=== PATIENT | male | born 1980 | race Caucasian/White ===

== ENCOUNTER 2016-05-23 11:25 | Emergency (ER) | payer SELFPAY ==
[2016-05-23] MEDS ORDERED: NORMAL SALINE 10 ML SYRINGE FLUSH IVP PRN (11:40)
[2016-05-23] MEDS ORDERED: DIAZEPAM 10 MG/2 ML (5 MG/1 ML) CARPUJECT IVP ONE (11:40)
[2016-05-23] MEDS ORDERED: MEPERIDINE HCL/PF 100 MG/1 ML INJECTION IVP ONE (11:40)
[2016-05-23 11:52] VITALS: RESP 14
[2016-05-23] MEDS ORDERED: Sodium Chloride 0.9% 1,000 ML PRIMARY IV ONE (11:58)
[2016-05-23] MEDS ORDERED: MIDAZOLAM 5 MG/1 ML ONE (12:16)
[2016-05-23] MEDS ORDERED: MIDAZOLAM 5 MG/1 ML IVP ONE (12:42)
--- NOTE | 2016-05-23 12:44 | PDOC ---
Shoulder Injury/Pain HPI - General Chief Complaint: Upper Extremity Problem/Injury Stated Complaint: LEFT SHOULDER INJURY Date Seen by Provider: 05/23/16 Time Seen by Provider: 12:44 - History of Present Illness Have you received a tetanus shot in the past 10 years?: Unknown - Patient Home Medications Home Medications: Home Medications NK [No Home Medications Reported] 05/23/16 - Patient Allergies Allergies/Adverse Reactions: Allergies Allergy/AdvReac Type Severity Reaction Status Date / Time No Known Allergies Allergy Verified 05/23/16 12:00 Past Medical History - heen HEENT History: Denies History Cardiovascular History: Denies History Respiratory History: Denies History Gastrointestinal History: Denies History Genitourinary History: Denies History Endocrine History: Denies History Musculoskeletal History: Denies History Neurological History: Denies History Blood Disorders: Denies History Psychiatric History: Denies History History of Sexually Transmitted Diseases: No Cancer History: Denies History In Past Year Been Physically Harmed or Verbally Threatened: No History of MDRO: No Tobacco Use: Unknown If Ever Smoked Alcohol Use: None Substance Use Type: None Previous Surgical History: Yes Type / Date of Surgery: LEFT SHOULDER RCT X3, RIGHT ANKLE Anesthesia Reactions: No Malignant Hyperthermia: No Significant Family History: No pertinent family hx Procedure - Procedure Sedation Product Analyst Applied: Yes Rhythm: Sinus Rhythm Oxygen Delivery Method: Mask-Simple Oxygen Flow Rate: 6 Continuous Pulse Ox: Yes Patent IV Line (s): Yes Patient Tolerated Procedure: Good - Reduction Location of Reduction:: ED ed Conscious Sedation: Yes Method of Reduction: POSITIVE: Other (Multiple reduction attempts were made to reduce his left shoulder. Techniques included Friedman and Walker and Carver and then with substantial sedation traction countertraction with pressure into the axilla and none of these were successful in permit reduction of his shoulder dislocation.) Shoulder Pain/Injury Progress - Results Reviewed by me Radiology Findings: Postreduction films show that his humerus is still substantially inferior in his glenoid and then - Patient's Progress MDM / ED Course: re-examination of the shoulder after these films is taken I believe he likely slipped forward back into anterior dislocation. Ultimately this gentleman shoulder is resistant to being reduced. He states that with 2 prior reductions he had to have surgery to have this shoulder repaired before it would reduce. I have discussed this case with orthopedic surgeon Dr. Alford [place] [facility] [place] accept the patient for evaluation. The patient is to go through the emergency department therefore I discussed the case with Dr. Cassandra Gallegos take this patient in the ER. He isn't be transferred via police car after his shoulder and arm are placed in a sling. He was given a total of 100 mg of Demerol 10 mg of Valium and then 4 mg of Versed for sedation. Patient Care Time - Estimated PCT Patient Care Time (In Minutes): 65 Vital Signs - Recent Vital Signs Vital Signs: Vital Signs (Last 8 hours) Temp Pulse Resp BP Pulse Ox 05/23/16 11:25 98.2 F 111 H 14 121/101 100 Discharge Clinical Impression: Dislocation of shoulder joint Discharge Disposition: Transferred to Tertiary Care Facility Condition: Good Patient Instructions Given at Discharge: Shoulder Dislocation (ED) Additional Instructions: Patient is being transferred to [facility] [place] the care of Dr. Alford and the emergency department providers. Follow Up With: NONE,NONE [Primary Care Provider] - Date Decision to Transfer to Another Facility: 05/23/16 Time Decision to Transfer to Another Facility: 14:55
--- NOTE | 2016-05-23 13:23 | DI ---
XR SHOULDER 1VW,05/23/2016 12:26 PM: Clinical History: Post reduction. Previous Exam: Same date at 3 hours prior. Findings: A single AP view of the left shoulder is obtained, and demonstrates superior location of the proximal humerus when compared with the prior exam. Impression: With this single view, it is impossible to verify anatomic alignment.
--- NOTE | 2016-05-23 14:48 | DI ---
XR SHOULDER MIN 2VW,05/23/2016 1:22 PM: Clinical History: Status post reduction. Previous Exam: Same date one hour prior. Findings: 3 views of the left shoulder are obtained, and demonstrate an excessively low position of the humeral head on the glenoid, but there is no anterior dislocation. There are degenerative changes involving the left glenohumeral joint. The acromioclavicular joint is unremarkable. The adjacent left lung and chest wall is unremarkable. Impression: Degenerative changes of the left glenohumeral joint. Near anatomic alignment with a slightly inferiorly displaced humerus on the glenoid.
[2016-05-23 15:30] VITALS: TEMP 98
== END 2016-05-23 15:15 | disposition short-term general hospital (02) ==
LOC: ER 11:25
DX: M24.312 Pathological dislocation of left shoulder, not elsewhere classified (principal); X50.1XXA Overexertion from prolonged static or awkward postures, initial encounter; Y93.B9 Activity, other involving muscle strengthening exercises
CPT/HCPCS: 23650; 73020; 73030; 96374; 96375; 99283; J2175; J2250; J3360; J7030

== ENCOUNTER → 2016-05-23 | Outpatient (CLI) | payer SELFPAY ==
--- NOTE | 2016-05-23 11:01 | DI ---
XR SHOULDER MIN 2VW,05/23/2016 9:18 AM: Clinical History: Recurrent dislocations. Previous Exam: April 18, 2012 Findings: 2 views of the left shoulder are obtained, and demonstrate an anterior inferior dislocation of the le ft glenohumeral joint with new osteophyte formation of the humerus. There is some sclerosis of the an terior margin of the glenoid as well. The adjacent left lung and chest wall are unremarkable. The clavicle is unremarkable. Impression: 1. Anterior dislocation of the left glenohumeral joint. 2. New degenerative osteoarthritis of the glenohumeral joint.
== END ==
LOC: MOB RAD 09:19
PROVIDERS: ATTEND Physician Assistant
DX: M24.412 Recurrent dislocation, left shoulder (principal); M19.012 Primary osteoarthritis, left shoulder
CPT/HCPCS: 73030

== ENCOUNTER → 2016-06-06 | Outpatient (CLI) | payer OTHER ==
--- NOTE | 2016-06-07 15:03 | DI ---
MRI LEFT SHOULDER SCAN, 06/06/2016 1:02 PM: Clinical History: Recurrent left shoulder dislocation. Previous Exam: None at this facility. Comparison is made with plain films of the shoulder from 012 and 05/23/2016. Technique: Axial, coronal, and sagittal fat saturated PD; axial gradient FE; coronal fat saturatedT2 weighted; sagittal T2 weighted. There is no soft tissue abnormality. A moderately large joint effusion is present. The AC joint is no rmal. There is a type II acromion. The patient has had prior surgery involving the anterior half of t he glenoid labrum with multiple anchors placed in the anterior half of the glenoid from the 12:00 estrellita ost to the 6:00 position. Anchors have also been placed in the posterior aspect of the humeral head. This patient may have had previous surgery to the supraspinatus and infraspinatus tendons and there i s an interstitial tear in the infraspinatus tendon. There is no Hill-Sachs deformity although the anc hor screws are placed at the location typical of a Hill-Sachs lesion. There is fragmentation of the a nteroinferior margin of the glenoid fossa indicative of a previous bony Bankart lesion. There is tend inosis of the subscapular tendon. The teres minor tendon is normal. The tendon of the long head of th e biceps muscle cannot be identified in this patient may have had a biceps tenodesis. There is bony s purring along the inferior and medial margin of the humeral head. The articular surface of the glenoi d is intact. There is marked thinning of the cartilaginous surface of the superior and medial surface of the humeral head, and complete erosion cannot be excluded. There is synovitis in the axillary latrell ch posteriorly. Readin. Status post extensive repair attempt for a bony Bankart lesion. There is marked erosion if not co mplete erosion of the superior and medial surface of the humeral head. Multiple anchors have been karlos marino in the anterior aspect of the glenoid fossa from the 12:00 to the 6:00 position. There are artifa cts present making assessment of the integrity of the anterior labrum difficult. There is synovitis i n the axillary pouch. Previous surgery has been performed through the myotendinous junction of the in fraspinatus muscle with placement of posterior anchors in the humeral head. No Hill-Sachs deformity i s seen and there is no evidence of grafts placed in the humeral head to repair a Hill-Sachs deformity . An interstitial tear is present in what probably represents a previous repair of the infraspinatus tendon. The patient may have also had a supraspinatus tendon repair. There is subscapularis tendinosi s. This patient may have also had tenodesis of the tendon of the long head of the biceps muscle. 2. The AC joint is normal. There is a type II acromion.
--- NOTE | 2016-06-07 15:03 | DI ---
CT SCAN OF THE LEFT SHOULDER, 06/06/2016 1:02 PM : Clinical History: Recurrent dislocations of the left shoulder. Scans are obtained from the base of the neck to the proximal third of the left humerus without IV con trast. Sagittal and coronal reformatted images are also generated. This patient had an MRI scan of the shoulder earlier the same day that demonstrated the shoulder in t he glenoid fossa. The outside dealer sales representative view in the subsequent images performed on the shoulder at this time show s inferior dislocation of the humeral head. Multiple anchoring holes are present in the anterior aspect of the glenoid fossa from the 12:00 posit ion extending inferiorly to the 6:00 position. There is fragmentation of the anterior labrum at the l evel of the equator indicating this patient has had a previous bony Bankart injury with subsequent re pair attempts. There are multiple anchors placed in the posterior aspect of the humeral head as well as in the anterosuperior and posterior superior portions of the humeral head probably related to repa ir of the supraspinatus and infraspinatus tendons. Extensive bony spurring is present along the anter oinferior and posteroinferior margins of the humeral head. There is no Hill-Sachs deformity. Remodeli ng of the glenoid fossa has occurred. The AC joint is normal and there is a type II acromion. No musc le atrophy is seen to involve the subscapularis, the supraspinatus and infraspinatus muscles. The ter es minor muscle does appear small but does not show fatty infiltration. The deltoid muscle also appea rs small relative to the surrounding muscles, and the possibility of axillary nerve damage is raised. READIN. The anteroinferior margin of the glenoid fossa has a fragmented appearance consistent with a prev ious bony Bankart lesion. The bony Bankart fracture has not healed. Multiple anchor holes are present from the 12:00 to the 6:00 position in the anterior half of the glenoid fossa. Anchors have also bee n placed in the humeral head probably for repair of the supraspinatus and infraspinatus tendons. Ther e are additional anchors located in the posterior aspect of the humeral head with evidence of previou s surgery of the infraspinatus muscle at the level of the myotendinous junction. There is no Hill-Sac hs deformity and there is no obvious evidence of prior bone grafting of the humeral head. 2. There has been remodeling of the glenoid fossa with bony spurring of the humerus along the inferi or margin of the humeral head medially. Between the time of the MRI scan and this CT scan, the natali l head has become inferiorly subluxed.
== END ==
LOC: MRI 12:55
PROVIDERS: ATTEND Orthopaedic Surgery Sports Medicine
DX: M24.412 Recurrent dislocation, left shoulder (principal); M94.8X1 Other specified disorders of cartilage, shoulder; M65.812 Other synovitis and tenosynovitis, left shoulder
CPT/HCPCS: 73200; 73221

== ENCOUNTER 2016-06-08 15:44 | Emergency (ER) | payer OTHER ==
[2016-06-08] MEDS ORDERED: NORMAL SALINE 10 ML SYRINGE FLUSH IVP PRN (15:56)
[2016-06-08 16:01] VITALS: TEMP 99
[2016-06-08] MEDS ORDERED: MIDAZOLAM 5 MG/1 ML IVP ONE ×3 (16:26→17:01)
[2016-06-08] MEDS ORDERED: MORPHINE SULFATE 4 MG/1 ML IVP ONE (16:26)
[2016-06-08] MEDS ORDERED: MORPHINE SULFATE 2 MG/1 ML IVP ONE (17:00)
[2016-06-08] MEDS ORDERED: Sodium Chloride 0.9% 1,000 ML PRIMARY IV ONE (17:02)
[2016-06-08] MEDS ORDERED: HYDROcodone-APAP 10 MG-325 MG TABLET PO SCH (18:00)
[2016-06-08] MEDS ORDERED: Sodium Chloride 0.9% 1,000 ML ONE (18:06)
[2016-06-08 18:12] VITALS: RESP 16
--- NOTE | 2016-06-08 20:55 | PDOC ---
Shoulder Injury/Pain HPI - General Chief Complaint: Upper Extremity Problem/Injury Stated Complaint: dislocated L shoulder Date Seen by Provider: 06/08/16 Time Seen by Provider: 15:45 Source: POSITIVE: Patient, Police, Old records Exam Limitations: POSITIVE: No limitations Nurse's Notes Reviewed & Considered: Yes - History of Present Illness Initial Comments: The patient is a 35-year-old male. He states that around 8 AM this morning he slipped and fell at the local [facility]; he is an inmate. He states he has had pain to his left shoulder since. Patient states that he has a history of recurring dislocation of his left shoulder for several years. He states he had surgery for chronically dislocating left shoulder 3 years ago in [place]. He was also seen by Dr. Dunn 04/18/2012 with a dislocated left shoulder. He had surgery for a failed Bankart repair of his left shoulder in February 2012. He was seen in the emergency room May 23 with a dislocation of his left shoulder and was relocated in the emergency room at that time. He has since followed up with Dr. James, orthopedic surgeon with shoulder training. He's had an MRI on [address] scan showed subluxation of the left glenohumeral joint. 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) Severity: Moderate Quality: REPORTS: "Pain" Location at Time of Onset: REPORTS: Other ([facility]) Context: REPORTS: Fall, Dislocated w/ Arm Raising Associated Symptoms: DENIES: Weakness, Bruising, Unable to Move Shoulder, Not Using Arm, Tingling, Numbness, Other Any Prior Injuries Related to Current Complaint?: Yes (history of recurring left shoulder dislocation as above) - Patient Home Medications Home Medications: Home Medications HYDROcodone/APAP 10/325 Tab [[place] 10/325 Tab] 1 tab PO Q6H PRN #20 tab Ibuprofen 1 tab PO Q8H PRN tab 06/08/16 Penicillin V Potassium 500 mg PO QID ml 06/08/16 - Patient Allergies Allergies/Adverse Reactions: Allergies Allergy/AdvReac Type Severity Reaction Status Date / Time No Known Allergies Allergy Verified 06/08/16 15:48 Past Medical History - heen HEENT History: Denies History Cardiovascular History: Denies History Respiratory History: Denies History Gastrointestinal History: Denies History Genitourinary History: Denies History Endocrine History: Denies History Musculoskeletal History: Denies History Neurological History: Denies History Blood Disorders: Denies History Psychiatric History: Substance Abuse History of Sexually Transmitted Diseases: No Cancer History: Denies History In Past Year Been Physically Harmed or Verbally Threatened: No History of MDRO: No Tobacco Use: Current Every Day Smoker Alcohol Use: None Substance Use Type: Methamphetamines Previous Surgical History: Yes Type / Date of Surgery: LEFT SHOULDER RCT X3, ORIF RIGHT ANKLE Anesthesia Reactions: No Malignant Hyperthermia: No Significant Family History: No pertinent family hx Past Medical History Reviewed: Reviewed - No Changes ROS - Limitations ROS Limitations: No Limitations Constitution: REPORTS: Denies Symptoms Cardiovascular: REPORTS: Denies Cardiac Symptoms Respiratory: REPORTS: Denies Resp Symptoms Neurological: REPORTS: Denies Neuro Symptoms Gastrointestinal: REPORTS: Denies GI Symptoms Endocrine: REPORTS: Denies Symptoms Musculoskeletal: REPORTS: Joint Pain (Left shoulder), Recent Injury (Left shoulder as above) Genitourinary: REPORTS: Denies Symptoms Eyes: REPORTS: Denies Symptoms ENT: REPORTS: Denies Symptoms Skin: REPORTS: Denies Skin Symptoms Lympathic: REPORTS: Denies Lympathic Symptoms Immunologic: POSITIVE: Denies Symptoms Psychiatric: POSITIVE: Denies Psych Symptoms Shoulder Injury/Pain Exam - General Appearance General Appearance: POSITIVE: Alert, Cooperative, No Acute Distress. NEGATIVE: No Evidence of Trauma (Loss of deltoid prominence, left shoulder) - Upper Extremity Shoulder: POSITIVE: Soft-Tissue Tenderness, Anterior Fullness, Limited ROM, Held in Adduction, See Diagram Upper Extremity: POSITIVE: Uninjured Below Shoulder Neuro/Vascular: POSITIVE: Sensation Normal, Motor Normal, No Vascular Compromise Skin: POSITIVE: Warm, Dry - Neck / Back Neck/Back: POSITIVE: Normal Inspection, Non-Tender, Painless ROM - Respiratory / CVS Respiratory / CVS: POSITIVE: Chest Non Tender, No Ecchymosis, Breath Sounds Normal, No Respiratory Distress, Heart Sounds Normal, Regular Rate/Rhythm Peripheral Pulses: Radial (R): 2+, Radial (L): 2+ Procedure - Reduction Time of Reduction: 16:20 Location of Reduction:: Left anterior glenohumeral shoulder dislocation Pre-Proc Neuro Vasc Exam: Normal Method of Reduction: POSITIVE: Manipulation Reduction Attempts: 3 Post Joint Reduction Film: Joint Reduced Post Reduction Neuro Vasc Exam: POSITIVE: Normal Sling Applied / Immobilizer Applied: Yes (gunslinger device) Procedure Note:: Patient given morphine sulfate and Versed, see nurse's notes, left anterior glenohumeral shoulder dislocation attempt 2. Dislocation appeared to reduce, but then spontaneously dislocate again. Case discussed with Dr. Bazzi, orthopedic surgeon, who had a similar experience. Once reduced, Dr. Bazzi arranged with physical therapy to have shoulder mobilizing a gunslinger device. Patient is being followed for this recurring shoulder dislocation by Dr. James , orthopedic surgeon with special shoulder training. Patient to follow-up with Dr. James next week. Images - Upper Extremities Upper Extremities: 1 - Anterior glenohumeral shoulder dislocation 2 - Well-healed surgical scar from previous surgical procedure for recurring shoulder dislocation. Shoulder Pain/Injury Progress - Results Reviewed by me Xrays/CTs/US Reviewed by me: Yes Discussed with Radiologist: Yes Radiology Findings: Prereduction film shows anterior glenohumeral shoulder dislocation. Postreduction film shows good relocation. - Patient's Progress Pain Medication Addressed: POSITIVE: Yes (Hydrocodone/APAP, one every 6 hours as necessary for pain) Re-Examine Time:: 17:25 Re-Examine Comment: Shoulder dislocation reduced; gunslinger immobilization device placed Status: POSITIVE: Improved, Re-Examined - Consult Counseled: POSITIVE: Patient, RE: Radiology Results, RE: DX, RE: Need for F/U Patient Care Time - Estimated PCT Patient Care Time (In Minutes): 60 Vital Signs - Recent Vital Signs Vital Signs: Vital Signs (Last 8 hours) Temp Pulse Resp BP Pulse Ox 06/08/16 17:11 85 16 132/74 95 06/08/16 16:55 80 16 125/80 06/08/16 16:33 79 16 112/80 97 06/08/16 15:45 99.0 F 95 18 120/76 94 - VS Reviewed Vital Signs Reviewed: Yes Discharge Clinical Impression: Dislocation of shoulder joint Discharge Disposition: Discharged to Custody of Law Enforcement Condition: Stable Prescriptions / Orders: HYDROcodone/APAP 10/325 Tab [[place] 10/325 Tab] 1 tab PO Q6H PRN #20 tab PRN Reason: Pain Patient Instructions Given at Discharge: Shoulder Dislocation (ED) Additional Instructions: Wear the shoulder immobilizing device given to you by physical therapy. Follow- up with Dr. Hilario James, who is a orthopedic surgeon with special training in shoulder problems. You have recurring dislocation of your shoulder with prominent instability of this joint. Hydrocodone/APAP one every 6 hours as necessary for pain. Follow Up With: REJI BUNCH [Primary Care Provider] - (Instructions as above. Follow-up with Dr. James, orthopedist as above. Return as necessary.) Date Decision to Transfer to Another Facility: 06/08/16 Time Decision to Transfer to Another Facility: 17:25
--- NOTE | 2016-06-09 09:29 | DI ---
LEFT SHOULDER, 06/08/2016 2:56 PM: Clinical History: Dislocation. Previous Exam: 05/23/2016. 2 views are submitted. The transthoracic view is obtained with a breathing technique that unfortunate ly degrades the image quality. The AP projection shows subluxation of the humeral head inferiorly wit h impaction of the humeral head on the inferior margin of the glenoid fossa. The visualized portions of the left lung and apex are normal. Reading: Inferior subluxation of the humeral head with impaction of the head on the inferior margin of the gle noid fossa.
--- NOTE | 2016-06-09 09:29 | DI ---
LEFT SHOULDER, 06/08/2016 3:58 PM: Clinical History: Dislocation of the left shoulder. Status post reduction. Previous Exam: Earlier today at 1607 hours. 2 AP projections are submitted. The first film shows reduction of the impacted humeral head but it is still subluxed inferiorly. The second AP projection is obtained one minute later after the humeral h ead is elevated by an legal assistant. In this view, the humeral head is in the normal location. This would indicate there is a combined labral instability and presumed loss of muscle strength to maintain the humeral head in position, suggesting injury to the axillary nerve. Readin. The inferior dislocation with impaction of the humeral head on the inferior margin of the glenoid fossa has been reduced. 2. However, the humeral head undergoes inferior subluxation after reduction and this is indicative o f lack of integrity of the inferior labrum as well as presumed muscle weakness
--- NOTE | 2016-06-11 11:05 | OPS SHOULD ---
Referral Reason: Laly Ultrasling O: The patient was issued an ultrasling and instructed in its proper use and care. P: No further therapy is indicated at this time. The patient will begin outpatient physical therapy. ISABEL
== END 2016-06-08 17:55 ==
LOC: ER 15:44
DX: S43.035A Inferior dislocation of left humerus, initial encounter (principal); W01.0XXA Fall on same level from slipping, tripping and stumbling without subsequent striking against object, initial encounter
CPT/HCPCS: 23650; 73020; 73030; 96374; 96375; 99282; J2250; J2270; J7030

== ENCOUNTER 2016-07-13 16:12 | Emergency (ER) | payer OTHER ==
[2016-07-13] MEDS ORDERED: Sodium Chloride 0.9% 1,000 ML PRIMARY IV ONE (16:18)
--- NOTE | 2016-07-13 16:22 | PDOC ---
Shoulder Injury/Pain HPI - General Chief Complaint: Upper Extremity Problem/Injury Stated Complaint: shoulder Date Seen by Provider: 07/13/16 Time Seen by Provider: 16:19 Source: POSITIVE: Patient, Police Exam Limitations: POSITIVE: No limitations Nurse's Notes Reviewed & Considered: Yes - History of Present Illness Initial Comments: Patient comes in today to complaint of left shoulder dislocation. Patient with a history of frequent shoulder dislocations comes in from group home today with deformity and pain decreased range of motion in his left shoulder. Patient was taking a shower today when he twitched and his shoulder popped out he comes in now for further evaluation. He denies any fever chills or sweats, nausea vomiting or diarrhea, no chest pain or shortness of breath. No rashes, no hematuria dysuria. Have you received a tetanus shot in the past 10 years?: Unknown Location: Left Shoulder Timing: REPORTS: Abrupt Duration: 1/2 hour Severity: Moderate Quality: REPORTS: "Pain" Location at Time of Onset: REPORTS: Other ([facility]) Context: REPORTS: Other (History of frequent dislocations, dislocated in the shower today.) Associated Symptoms: REPORTS: Unable to Move Shoulder, Not Using Arm Any Prior Injuries Related to Current Complaint?: Yes (multiple shoulder dislocations and shoulder surgery in the past.) - Patient Home Medications Home Medications: Home Medications HYDROcodone/APAP 10/325 Tab [[place] 10/325 Tab] 1 tab PO Q6H PRN #20 tab Ibuprofen 1 tab PO Q8H PRN tab 06/08/16 Acetaminophen [Tylenol] 325 mg PO PRN tab 06/22/16 Hydrocodone/Acetaminophen [Hydrocodon-Acetaminophn 10-325] 1 tab PO Q6H tab Ibuprofen 1 tab PO Q8H tab 06/22/16 Naproxen Sodium [Aleve] 1 tab PO Q12H tab 06/22/16 Buspirone HCl 1 tab PO BID #60 tab 07/06/16 - Patient Allergies Allergies/Adverse Reactions: Allergies Allergy/AdvReac Type Severity Reaction Status Date / Time No Known Allergies Allergy Verified 06/08/16 15:48 Past Medical History - heen HEENT History: Denies History Cardiovascular History: Denies History Respiratory History: Denies History Gastrointestinal History: Denies History Genitourinary History: Denies History Endocrine History: Denies History Musculoskeletal History: Denies History Neurological History: Denies History Blood Disorders: Denies History Psychiatric History: Denies History History of Sexually Transmitted Diseases: No Cancer History: Denies History History of MDRO: No Alcohol Use: None Substance Use Type: None Previous Surgical History: Yes Type / Date of Surgery: LEFT SHOULDER RCT X3, RIGHT ANKLE Anesthesia Reactions: No Malignant Hyperthermia: No Significant Family History: No pertinent family hx ROS - Limitations ROS Limitations: No Limitations Constitution: REPORTS: Denies Symptoms Cardiovascular: REPORTS: Denies Cardiac Symptoms Respiratory: REPORTS: Denies Resp Symptoms Neurological: REPORTS: Denies Neuro Symptoms Gastrointestinal: REPORTS: Denies GI Symptoms Endocrine: REPORTS: Denies Symptoms Musculoskeletal: REPORTS: Joint Pain (Left shoulder deformity and pain) Genitourinary: REPORTS: Denies Symptoms Eyes: REPORTS: Denies Symptoms ENT: REPORTS: Denies Symptoms Skin: REPORTS: Denies Skin Symptoms Lympathic: REPORTS: Denies Lympathic Symptoms Immunologic: POSITIVE: Denies Symptoms Psychiatric: POSITIVE: Denies Psych Symptoms Shoulder Injury/Pain Exam - General Appearance General Appearance: POSITIVE: Alert, Cooperative, No Acute Distress - Upper Extremity Shoulder: POSITIVE: AC Drop-Off, Anterior Fullness, Limited ROM, Held in Internal Rotation, Limited Adduction, Limited Abduction, Limited Internal Rotation, Limited External Rotation Upper Extremity: POSITIVE: Uninjured Below Shoulder Neuro/Vascular: POSITIVE: Sensation Normal, Motor Normal Skin: POSITIVE: Warm, Dry - HEENT HEENT: POSITIVE: Head Inspection Nml, Eyes Inspection Nml, Ears Inspection Nml, Nose Inspection Nml, PERRL, EOMI - Neck / Back Neck/Back: POSITIVE: Normal Inspection, Non-Tender, Painless ROM - Respiratory / CVS Respiratory / CVS: POSITIVE: Chest Non Tender, No Ecchymosis, Breath Sounds Normal, No Respiratory Distress, Heart Sounds Normal, Regular Rate/Rhythm - Abdomen Abdomen: Soft: (All Quadrants), Normal Bowel Sounds: (All Quadrants), Denies Tenderness: (All Quadrants) Procedure - Procedure Sedation Senior Vice President Applied: Yes Rhythm: Sinus Rhythm Oxygen Delivery Method: Nasal Cannula Oxygen Flow Rate: 2 Continuous Pulse Ox: Yes Patent IV Line (s): Yes Patient Tolerated Procedure: Good Comment: After obtaining informed written consent for conscious sedation and closed reduction of left shoulder dislocation, patient was laid recumbent and received 80 mg of IV ketamine and 40 mg of IV propofol. This resulted in excellent anesthesia his shoulder was easily reduced however every time he was moved her shoulder would drop out of place. He was finally placed into a shoulder immobilizer, postreduction x-rays were obtained which showed improved anatomical position, however it was still slightly subluxed. Patient was recovered in the emergency room without further complication. Shoulder Pain/Injury Progress - Results Reviewed by me Xrays/CTs/US Reviewed by me: Yes Discussed with Radiologist: No - Patient's Progress Pain Medication Addressed: POSITIVE: Yes (Ketamine) Re-Examine Time:: 17:49 Status: POSITIVE: Improved MDM / ED Course: Patient was examined, x-rays of his shoulder were obtained. Next Findings: X-ray shows Anterior shoulder dislocation, left shoulder. Assessment: Left anterior shoulder dislocation. Plan: The patient receives conscious sedation here in the emergency room and closed reduction was attempted. There was improvement of anatomical alignment however was unsuccessful and totally reducing this injury. I was able to contact the orthopedic surgeon pet resort concierge, Dr. Good, who is advising immobilization and follow-up surgery. Patient has his shoulder immobilized, and receives a prescription for [place] No. 20. He is being discharged back to group home with instructions to follow-up with his orthopedic surgeon. During recovery patient was complaining of eye irritation and his conjunctiva was noted to be erythemic with yellowish discharge present in the inner canthus. He receives tobramycin drops for conjunctivitis instructions in their application 2 drops each eye 3 times a day for 3 days. - Consult Counseled: POSITIVE: Patient, RE: Radiology Results, RE: DX, RE: Need for F/U Patient Care Time - Estimated PCT Patient Care Time (In Minutes): 45 Vital Signs - VS Reviewed Vital Signs Reviewed: Yes Discharge Clinical Impression: Shoulder dislocation, Conjunctivitis Discharge Disposition: Discharged to [facility] [employer] Condition: Stable Patient Instructions Given at Discharge: Shoulder Dislocation (ED), Conjunctivitis (ED) Date Decision to Transfer to Another Facility: 07/13/16 Time Decision to Transfer to Another Facility: 17:50
[2016-07-13] MEDS ORDERED: KETAMINE 100 MG/1 ML - 5 ML IV ONE (16:29)
[2016-07-13] MEDS ORDERED: PROPOFOL 10 MG/1 ML (200 MG/20 ML) VIAL IV ONE (16:45)
[2016-07-13] MEDS ORDERED: TOBRAMYCIN 0.3% - 5 ML EYE DROPS EACH EYE ONE (17:51)
[2016-07-13] MEDS ORDERED: HYDROcodone-APAP 5 MG -325 MG TABLET PO ONE (18:19)
[2016-07-13 18:37] VITALS: RESP 16; TEMP 99.2
--- NOTE | 2016-07-16 08:02 | DI ---
XR SHOULDER MIN 2VW,07/13/2016 5:04 PM: Clinical History: Status post reduction Previous Exam: One hour prior. Findings: 2 views of the left shoulder are obtained, and demonstrate interval anatomic reduction of the left sh oulder. There is still some mild inferior replacement, but this is likely the normal resting position of the glenohumeral joint. There is a joint effusion. No fractures are seen. Impression: Anatomic reduction of the left shoulder.
--- NOTE | 2016-07-16 08:02 | DI ---
XR SHOULDER MIN 2VW,07/13/2016 4:18 PM: Clinical History: Deformity Previous Exam: None available. Findings: 2 views of the left shoulder are obtained, and demonstrate an anterior dislocation with anterior infe rior displacement of the left proximal humerus. There are degenerative changes involving the glenoid and the left humeral head. The adjacent left lung and chest wall are unremarkable. Impression: Status post anterior dislocation of the left glenohumeral joint.
== END 2016-07-13 18:23 ==
LOC: ER 16:12
DX: M24.412 Recurrent dislocation, left shoulder (principal); H57.8 Other specified disorders of eye and adnexa; M25.512 Pain in left shoulder
CPT/HCPCS: 73030; 96361; 96374; 99283 ×2; J2704; J7030

== ENCOUNTER 2016-07-20 14:54 | Emergency (ER) | payer OTHER ==
[2016-07-20] MEDS ORDERED: MORPHINE SULFATE 10 MG/1 ML IVP ONE ×2 (15:59→16:20)
[2016-07-20] MEDS ORDERED: MIDAZOLAM 5 MG/1 ML IVP ONE ×2 (16:00→17:56)
[2016-07-20] MEDS ORDERED: NORMAL SALINE 10 ML SYRINGE FLUSH IVP PRN (16:02)
[2016-07-20] MEDS ORDERED: PROPOFOL 10 MG/1 ML (200 MG/20 ML) VIAL IV ONE ×2 (16:14→17:58)
[2016-07-20] MEDS ORDERED: KETAMINE 100 MG/1 ML - 5 ML ONE (16:53)
[2016-07-20] MEDS ORDERED: NORMAL SALINE 1000 ML IV SCH (17:15)
--- NOTE | 2016-07-20 17:17 | CRNA.PROGR ---
Anesthesia Note Anesthesia Progress Note: ER Anesthesia Note Pt is in ER for re-current dislocation of the L shoulder. Heavy sedation was requested by Dr. Dufyf. Pt's history was discussed with the [employer], and the sedation plan was shared with the patient. The patient received a total of 250mg of propofol, 3mg of versed, and 50mg of ketamine titrated to appropriate sedation for relaxation and relocation of the L shoulder. See nurses EMR notes for exact times and dosage increments, also the VS assessed q2min are recorded in the nursing notes. Procedure time [id number]
[2016-07-20 17:41] VITALS: RESP 16; TEMP 98.1
[2016-07-20] MEDS ORDERED: ACETAMINOPHEN 325 MG TABLET PO ONE (17:53)
[2016-07-20] MEDS ORDERED: KETAMINE 100 MG/1 ML - 5 ML IV ONE (17:57)
[2016-07-20] MEDS ORDERED: ACETAMINOPHEN 500 MG TABLET PO ONE (18:02)
--- NOTE | 2016-07-21 02:41 | PDOC ---
Shoulder Injury/Pain HPI - General Chief Complaint: Upper Extremity Problem/Injury Stated Complaint: left shoulder pain Date Seen by Provider: 07/20/16 Time Seen by Provider: 15:15 Source: POSITIVE: Patient Exam Limitations: POSITIVE: No limitations Nurse's Notes Reviewed & Considered: Yes - History of Present Illness Initial Comments: The patient is a 35-year-old male. He has a history of a recurring dislocation of his left shoulder. His left shoulder has been dislocating for the past 3 years. He has in the past had 2 surgical procedures on his left shoulder for this problem. He states he is scheduled for a third surgical procedure in [place] next month. Patient is presently a inmate at the sn[facility]. Patient states he has dislocated his shoulder 3 times since March. He states that today he rolled over in bed and his left shoulder spontaneously dislocated. Have you received a tetanus shot in the past 10 years?: Yes Location: Left Shoulder Timing: REPORTS: Abrupt Duration: <24 hours Severity: Moderate Quality: REPORTS: "Pain" Location at Time of Onset: REPORTS: Other (snf) Context: REPORTS: Other (Dislocated left shoulder with rolling over in bed) Associated Symptoms: DENIES: Weakness, Bruising, Unable to Move Shoulder, Not Using Arm, Tingling, Numbness, Other Any Prior Injuries Related to Current Complaint?: Yes (as above; recurring dislocation left shoulder) - Patient Home Medications Home Medications: Home Medications NK [No Home Medications Reported] 07/20/16 - Patient Allergies Allergies/Adverse Reactions: Allergies Allergy/AdvReac Type Severity Reaction Status Date / Time No Known Allergies Allergy Verified 07/20/16 15:09 Past Medical History - heen HEENT History: Denies History Cardiovascular History: Denies History Respiratory History: Denies History Gastrointestinal History: Denies History Genitourinary History: Denies History Endocrine History: Denies History Musculoskeletal History: Denies History Prosthesis or Implant: No Additional Musculoskeletal History: CHRONIC LEFT SHOULDER DISLOCATIONS Neurological History: Denies History Blood Disorders: Denies History Psychiatric History: Denies History History of Sexually Transmitted Diseases: No Male Reproductive History: Denies History Cancer History: Denies History In Past Year Been Physically Harmed or Verbally Threatened: No History of MDRO: No History of Other Communicable Diseases: No Tobacco Use: Never Smoker Alcohol Use: None Substance Use Type: Methamphetamines Previous Surgical History: Yes Type / Date of Surgery: LEFT SHOULDER RCT X3, RIGHT ANKLE SURGERY WITH 7 PINS+1 PLATE PLACEMENT Anesthesia Reactions: No Malignant Hyperthermia: No Family History of Malignant Hyperthermia: No Significant Family History: No pertinent family hx Past Medical History Reviewed: Reviewed - No Changes ROS - Limitations ROS Limitations: No Limitations Constitution: REPORTS: Denies Symptoms Cardiovascular: REPORTS: Denies Cardiac Symptoms Respiratory: REPORTS: Denies Resp Symptoms Neurological: REPORTS: Denies Neuro Symptoms Gastrointestinal: REPORTS: Denies GI Symptoms Endocrine: REPORTS: Denies Symptoms Musculoskeletal: REPORTS: Joint Pain (Left shoulder) Genitourinary: REPORTS: Denies Symptoms Eyes: REPORTS: Denies Symptoms ENT: REPORTS: Denies Symptoms Skin: REPORTS: Denies Skin Symptoms Lympathic: REPORTS: Denies Lympathic Symptoms Immunologic: POSITIVE: Denies Symptoms Psychiatric: POSITIVE: Denies Psych Symptoms Shoulder Injury/Pain Exam - General Appearance General Appearance: POSITIVE: Alert, Cooperative, No Acute Distress, Mild Distress. NEGATIVE: No Evidence of Trauma (Loss of deltoid fullness; anterior left lateral humeral dislocation) - Upper Extremity Shoulder: POSITIVE: Soft-Tissue Tenderness, Bony Tenderness, Anterior Fullness, Limited ROM, Held in Adduction, See Diagram. NEGATIVE: Normal Inspection, Full ROM (Range of motion limited in abduction and extension), No Dislocation, Swelling, Ecchymosis, Clavicular Deformity, AC Drop-Off Upper Extremity: POSITIVE: Uninjured Below Shoulder Neuro/Vascular: POSITIVE: Sensation Normal, Motor Normal, No Vascular Compromise Skin: POSITIVE: Warm, Dry - Neck / Back Neck/Back: POSITIVE: Normal Inspection, Non-Tender, Painless ROM - Respiratory / CVS Respiratory / CVS: POSITIVE: Chest Non Tender, No Ecchymosis, Breath Sounds Normal, No Respiratory Distress, Heart Sounds Normal, Regular Rate/Rhythm Peripheral Pulses: Radial (R): 2+, Radial (L): 2+ Procedure - Reduction Time of Reduction: 16:00 Location of Reduction:: Anterior glenohumeral dislocation, left shoulder reduced in the ER under conscious sedation Pre-Proc Neuro Vasc Exam: Normal Conscious Sedation: Yes (see lighting fixture installer's note) Method of Reduction: POSITIVE: Manipulation Reduction Attempts: 3 Post Joint Reduction Film: No Fracture Seen Post Reduction Neuro Vasc Exam: POSITIVE: Normal Sling Applied / Immobilizer Applied: Yes (shoulder immobilizer applied) Procedure Note:: Attempts to reduce left anterior glenohumeral shoulder dislocation initially attempted without anesthesia, since it was thought that since this is a recurring problem it would easily reduce. Attempt at reduction without conscious sedation not successful. An acid cyst performed conscious sedation and shoulder was then reduced on second attempt. Post reduction shoulder x- rays show good reduction. Shoulder immobilizer reapplied. Images - Upper Extremities Upper Extremities: 1 - Anterior glenohumeral shoulder dislocation Shoulder Pain/Injury Progress - Results Reviewed by me Xrays/CTs/US Reviewed by me: Yes Discussed with Radiologist: No Radiology Findings: Prereduction shoulder x-ray shows anterior glenohumeral dislocation. Post reduction views show good reduction. - Patient's Progress Pain Medication Addressed: POSITIVE: Yes (Recommended Advil or Tylenol on discharge) School/Work Release Addressed: POSITIVE: Yes (May return to snf) Re-Examine Time:: 16:55 Re-Examine Comment: Should dislocation reduced Status: POSITIVE: Improved, Re-Examined - Consult Counseled: POSITIVE: Patient, RE: Radiology Results, RE: DX, RE: Need for F/U Patient Care Time - Estimated PCT Patient Care Time (In Minutes): 55 Vital Signs - VS Reviewed Vital Signs Reviewed: Yes Discharge Clinical Impression: Shoulder dislocation, recurrent, Dislocation of shoulder joint Discharge Disposition: Other (Discharge back to snf) Condition: Stable Patient Instructions Given at Discharge: Shoulder Dislocation (ED) Additional Instructions: Your dislocated left shoulder has been relocated. Wear shoulder immobilizer. Follow-up with your orthopedist for surgical repair, as is already arranged. Return here anytime as necessary. Follow Up With: REJI BUNCH [Primary Care Provider] - (Instructions as above. Follow-up with you orthopedist. Return here as necessary.)
--- NOTE | 2016-07-21 14:11 | DI ---
XR SHOULDER MIN 2VW,07/20/2016 3:11 PM: Clinical History: Shoulder pain Previous Exam: None available. Findings: AP and scapular Y. views left shoulder are obtained, and demonstrate an anterior inferior dislocation . There are some degenerative changes. There is some osteophyte formation as well. The adjacent left lung and chest wall are unremarkable. Impression: Anterior dislocation of the left glenohumeral joint with underlying degenerative osteoarthritis.
--- NOTE | 2016-07-23 08:38 | DI ---
LEFT SHOULDER, 07/20/2016 5:20 PM: Clinical History: Anterior dislocation of the left shoulder. Status post reduction attempt. Previous Exam: Earlier today at 1516 hours. 3 anterior views are submitted. All views show persistence of the anterior dislocation of the humeral head. There are bony defects in the humeral head indicating this patient has had previous surgery. C ystic degenerative changes are present in the glenoid, and there is bony proliferative change along t he inferior and medial aspect of the humeral head. Reading: The anterior shoulder dislocation has not been reduced.
--- NOTE | 2016-07-23 08:41 | DI ---
LEFT SHOULDER, 07/20/2016 5:02 PM: Clinical History: Post reduction view. Multiple reduction attempts apparently have been performed. Previous Exam: Earlier today at 1546 hours, and at 1517 hours. A single AP projection is submitted. Degenerative changes are present in the glenoid fossa no as well as the medial and inferior aspect of the humeral head. There is no fracture noted following the redu ction attempt. 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 Readin. Status post reduction of the left anterior dislocation of the shoulder. No fracture is noted. 2. Congenital anomalies are present in the cervical spine.
== END 2016-07-20 18:20 ==
LOC: ER 14:54
DX: M24.412 Recurrent dislocation, left shoulder (principal); M25.512 Pain in left shoulder
CPT/HCPCS: 23655 ×2; 73020; 73030; 96374; 96375; 96376; 99283 ×2; J2270; J2704; J2250; J7030